=== PATIENT | female | born 1970 | race Hispanic/Latino ===

== ENCOUNTER 2020-10-31 13:43 | Outpatient (CLI) | payer OTHER ==
--- NOTE | 2020-10-31 14:51 | XRay Report ---
LUMBAR SPINE 3 VIEWS INDICATION: BACK PAIN. COMPARISON: No relevant prior imaging study available. FINDINGS: Lumbar vertebral body height is maintained. Alignment is normal. There is moderate discogenic degenerative change at L5-S1. Disc space height is otherwise maintained. Mid to lower lumbar facet arthropathy is noted. IMPRESSION: 1. No acute findings. Mid to lower lumbar spondylosis. Signer Name: Jordon Walters MD Signed: 10/31/2020 2:46 PM Workstation Name: [id number]
== END 2020-10-31 13:44 | disposition home or self-care (01) ==
LOC: XRAY 13:43
PROVIDERS: ATTEND Internal Medicine
DX: M47.816 Spondylosis without myelopathy or radiculopathy, lumbar region (principal)
CPT/HCPCS: 72100